=== PATIENT | female | born 1935 | race Hispanic/Latino ===

== ENCOUNTER 2020-05-28 12:09 | Outpatient (CLI) | payer MEDICARE ==
--- NOTE | 2020-05-28 15:24 | Cat Scan Report ---
CT abdomen pelvis wo/w con INDICATION / CLINICAL INFORMATION: MAIN. TECHNIQUE: Volumetric CT data acquisition of the abdomen and pelvis was performed prior to and follow ing administration of IV contrast. All CT scans at this location are performed using CT dose reducti on for ALARA by means of automated exposure control. COMPARISON: None available FINDINGS: LOWER CHEST: There is cardiac enlargement without pericardial effusion. Small bilateral pleural effus ions, more pronounced in the right. There is interlobular septal thickening, favoring interstitial ed chan. LIVER: Unremarkable GALLBLADDER/BILIARY TREE: Gallbladder is surgically absent. There is intrahepatic and extrahepatic bi liary dilatation, with common bile duct measuring up to 1.8 cm. No discrete obstructing stone or mass identified. PANCREAS: There is mild pancreatic duct dilatation. Pancreas is otherwise unremarkable. SPLEEN: Scattered calcified granulomata throughout the spleen with multiple cystic structures, which may reflect cyst or pseudocyst. ADRENALS: Unremarkable KIDNEYS: Kidneys enhance symmetrically. Tiny exophytic mid pole left renal cyst noted. No suspicious renal lesion. No hydronephrosis URINARY BLADDER: Bladder is unremarkable. REPRODUCTIVE ORGANS: Uterus is absent. No significant adnexal abnormality. STOMACH / SMALL BOWEL: Stomach and small bowel are normal in caliber. No evidence of bowel inflammati on. COLON: Colonic diverticulosis without evidence of diverticulitis. There is moderate colonic stool bur den. No colonic wall thickening or pericolonic inflammatory stranding. The appendix is not visualized , likely reflecting appendectomy. LYMPH NODES: No significant adenopathy. VASCULATURE: Severe atherosclerotic calcification without acute abnormality. OTHER: Trace perihepatic and pelvic free fluid. No intraperitoneal free air. No organized fluid colle ction. There is mild skin thickening of the right lower abdominal wall. 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 IMPRESSION: 1. Mild skin thickening of the right lower abdominal wall with adjacent inflammatory stranding, may r eflect cellulitis in the appropriate clinical setting. 2. Diffuse intrahepatic and extrahepatic biliary dilatation. This may reflect reservoir phenomenon r elated to cholecystectomy. Recommend correlation with laboratory values to exclude distal biliary obs truction. 3. Moderate colonic stool burden without evidence of colitis. 4. Cardiac enlargement with mild interstitial edema and small bilateral pleural effusions, more prono unced in the right. 5. Other chronic, incidental findings, as above. Signer Name: Jeff Cohen MD Signed: 05/28/2020 3:19 PM Workstation Name: [id number]
== END 2020-05-28 12:10 | disposition home or self-care (01) ==
LOC: CT 12:09
PROVIDERS: ATTEND Internal Medicine
DX: J90 Pleural effusion, not elsewhere classified (principal); I51.0 Cardiac septal defect, acquired; K57.30 Diverticulosis of large intestine without perforation or abscess without bleeding; N28.1 Cyst of kidney, acquired; Z90.49 Acquired absence of other specified parts of digestive tract
CPT/HCPCS: 36415; 74178; 82565; 84520; Q9967

== ENCOUNTER 2021-03-17 14:58 | Inpatient (IN) | payer MEDICARE ==
--- NOTE | 2021-03-17 17:07 | Emergency Department Report ---
ED Fall [facility] - General Chief Complaint: Fall Stated Complaint: FALL Source: patient Mode of arrival: Wheelchair - History of Present Illness MD Complaint: fall - Related Data Allergies Allergy/AdvReac Type Severity Reaction Status Date / Time No Known Allergies Allergy Verified 03/17/21 15:01 ED Review of Systems ROS: Stated complaint: FALL Other details as noted in HPI ED Physical Exam - General Limitations: No Limitations General appearance: alert, in no apparent distress - Head Head exam: Present: atraumatic, normocephalic - Eye Eye exam: Present: normal appearance, PERRL, EOMI Pupils: Present: normal accommodation - ENT ENT exam: Present: normal exam, normal orophraynx, mucous membranes moist, TM's normal bilaterally - Neck Neck exam: Present: normal inspection, full ROM - Respiratory Respiratory exam: Present: normal lung sounds bilaterally, rhonchi, decreased breath sounds (Decreased breath sounds to the bases). Absent: respiratory distress, wheezes, rales, accessory muscle use - Cardiovascular Cardiovascular Exam: Present: regular rate, normal rhythm. Absent: systolic murmur, diastolic murmur, rubs, gallop - GI/Abdominal GI/Abdominal exam: Present: soft, normal bowel sounds, organomegaly, other (Ascites and caput medusa is no is noted. Hepatomegaly also noted). Absent: guarding, rebound - Extremities Exam Extremities exam: Present: normal inspection, tenderness (Tenderness to the right hip with palpation over the trochanter region. No internal rotation or shortening is noted.), joint swelling (Swelling to the left elbow with a large skin tear to the lateral aspect of the wound) - Back Exam Back exam: Present: normal inspection. Absent: CVA tenderness (R), CVA tenderness (L) - Neurological Exam Neurological exam: Present: alert, oriented X3, CN II-XII intact, normal gait - Psychiatric Psychiatric exam: Present: normal affect, normal mood. Absent: anxious, flat affect, manic - Skin Skin exam: Present: warm, dry, intact, normal color. Absent: rash, diaphoretic, erythema, pallor, abrasion ED Course Vital Signs 03/17/21 03/17/21 15:01 15:23 Temperature 97.8 F Pulse Rate 94 H Respiratory 18 16 Rate Blood Pressure 136/61 [Left] O2 Sat by Pulse 97 97 Oximetry ED Medical Decision Making - Lab Data Result diagrams: 03/17/21 18:10 03/17/21 18:10 - Radiology Data Radiology results: report reviewed [address] [address] XRay Report Signed Patient: MAREK SALDANA MR#: [id number] [birth year] : 1935 Acct:[id number] Age/Sex: 85 / F ADM Date: 03/17/21 Loc: ED Attending Dr: Ordering Physician: NATHALIA HOLT Date of Service: 03/17/21 Procedure(s): XR hip 2-3V RT Accession Number(s): [id number] cc: NATHALIA HOLT Fluoro Time In Minutes: RIGHT HIP 2 VIEW(S) INDICATION / CLINICAL INFORMATION: fall pain with hematoma COMPARISON: CT dated 05/28/20 FINDINGS: BONES / JOINT(S): No acute fracture or subluxation. Moderate right hip degenerative arthrosis. SOFT TISSUES: Soft tissue swelling over the lateral aspect of the right hip. ADDITIONAL FINDINGS: None. Signer Name: Nenita Torres MD Signed: 03/17/2021 6:22 PM Workstation Name: [id number] Transcribed By: DT Dictated By: Reymundo Torres MD Electronically Authenticated By: Reymundo Torres MD Signed Date/Time: 03/17/211821 DD/ 18 TD/TT: [address] [address] XRay Report Signed Patient: MAREK SALDANA MR#: [id number] [birth year] : 1935 Acct:[id number] Age/Sex: 85 / F ADM Date: 03/17/21 Loc: ED Attending Dr: Ordering Physician: NATHALIA HOLT Date of Service: 03/17/21 Procedure(s): XR elbow 3+V LT Accession Number(s): [id number] cc: NATHALIA HOLT Fluoro Time In Minutes: LEFT ELBOW 4 VIEW(S) INDICATION / CLINICAL INFORMATION: fall pain hematoma COMPARISON: None available. FINDINGS: BONES / JOINT(S): No acute fracture or subluxation. No significant arthritis. SOFT TISSUES: Mild soft tissue swelling on the posterior and lateral aspect of the elbow. ADDITIONAL FINDINGS: None. Signer Name: Nenita Torres MD Signed: 03/17/2021 6:23 PM Workstation Name: [id number] Transcribed By: KENNETH Dictated By: Reymundo Torres MD Electronically Authenticated By: Reymundo Torres MD Signed Date/Time: 03/17/211822 DD/ 21 TD/TT: [address] [address] XRay Report Signed Patient: MAREK SALDANA MR#: [id number] [birth year] : 1935 Acct:[id number] Age/Sex: 85 / F ADM Date: 03/17/21 Loc: ED Attending Dr: Ordering Physician: NATHALIA HOLT Date of Service: 03/17/21 Procedure(s): XR chest routine 2V Accession Number(s): [id number] cc: NATHALIA HOLT Fluoro Time In Minutes: CHEST 2 VIEWS INDICATION / CLINICAL INFORMATION: sob. COMPARISON: 05/04/11 FINDINGS: SUPPORT DEVICES: None. HEART / MEDIASTINUM: Heart is moderately enlarged with pulmonary venous hypertension. LUNGS / PLEURA: Mild to moderate interstitial pulmonary edema No pneumothorax. ADDITIONAL FINDINGS: No significant additional findings. IMPRESSION: 1. Cardiomegaly with pulmonary edema. Signer Name: Nenita Torres MD Signed: 03/17/2021 6:23 PM Workstation Name: [id number] Transcribed By: DT Dictated By: Reymundo Torres MD Electronically Authenticated By: Reymundo Torres MD Signed Date/Time: 03/17/211822 DD/ 22 TD/TT: Critical care attestation.: If time is entered above; I have spent that time in minutes in the direct care of this critically ill patient, excluding procedure time. ED Disposition Condition: Stable Referrals: PRIMARY CARE, [Referring] - 3-5 Days
--- NOTE | 2021-03-17 18:26 | XRay Report ---
RIGHT HIP 2 VIEW(S) INDICATION / CLINICAL INFORMATION: fall pain with hematoma COMPARISON: CT dated 05/28/20 FINDINGS: BONES / JOINT(S): No acute fracture or subluxation. Moderate right hip degenerative arthrosis. SOFT TISSUES: Soft tissue swelling over the lateral aspect of the right hip. ADDITIONAL FINDINGS: None. Signer Name: Nenita Torres MD Signed: 03/17/2021 6:22 PM Workstation Name: [id number]
--- NOTE | 2021-03-17 18:27 | XRay Report ---
LEFT ELBOW 4 VIEW(S) INDICATION / CLINICAL INFORMATION: fall pain hematoma COMPARISON: None available. FINDINGS: BONES / JOINT(S): No acute fracture or subluxation. No significant arthritis. SOFT TISSUES: Mild soft tissue swelling on the posterior and lateral aspect of the elbow. ADDITIONAL FINDINGS: None. Signer Name: Nenita Torres MD Signed: 03/17/2021 6:23 PM Workstation Name: [id number]
--- NOTE | 2021-03-17 18:28 | XRay Report ---
CHEST 2 VIEWS INDICATION / CLINICAL INFORMATION: sob. COMPARISON: 05/04/11 FINDINGS: SUPPORT DEVICES: None. HEART / MEDIASTINUM: Heart is moderately enlarged with pulmonary venous hypertension. LUNGS / PLEURA: Mild to moderate interstitial pulmonary edema No pneumothorax. ADDITIONAL FINDINGS: No significant additional findings. IMPRESSION: 1. Cardiomegaly with pulmonary edema. Signer Name: Nenita Torres MD Signed: 03/17/2021 6:23 PM Workstation Name: [id number]
[2021-03-17 18:38] LABS: Basophils # (Auto) 0.1 K/mm3 (0.0-0.1); Basophils % (Auto) 1.7 % (0.0-1.8); Eosinophils % (Auto) 0.6 % (0.0-4.3); Hematocrit 29.9 % (30.3-42.9); Hemoglobin 9.3 gm/dl (10.1-14.3); Lymphocytes # (Auto) 0.8 K/mm3 (1.2-5.4); Lymphocytes % (Auto) 10.7 % (13.4-35.0); Mean Corpuscular HGB Conc 31 % (30-34); Mean Corpuscular Volume 95 fl (79-97); Monocytes # (Auto) 0.9 K/mm3 (0.0-0.8); Monocytes % (Auto) 13.1 % (0.0-7.3); Platelet Count 253 K/mm3 (140-440); Red Blood Count 3.16 M/mm3 (3.65-5.03); Red Cell Distribution Width 19.2 % (13.2-15.2)
[2021-03-17 18:53] LABS: Albumin 3.9 g/dL (3.9-5); Calcium 8.2 mg/dL (8.4-10.2)
[2021-03-17] MEDS ORDERED: FUROSEMIDE 40 MG/4 ML INJ IV ONE (21:04)
[2021-03-17] MEDS ORDERED: ACETAMINOPHEN 325 MG TAB PO PRN (22:00)
[2021-03-17] MEDS ORDERED: ONDANSETRON 4 MG/2 ML INJ IV PRN (22:00)
[2021-03-17] MEDS ORDERED: ALBUTEROL 2.5 MG/3 ML NEBU IH PRN (22:00)
[2021-03-17] MEDS ORDERED: NITROGLYCERIN 0.4 MG TAB SUBL SL PRN (22:00)
[2021-03-17] MEDS ORDERED: oxyCODONE /ACETAMINOPHEN 5-325MG TAB PO PRN (22:00)
[2021-03-17] MEDS ORDERED: HYDROmorphone 1 MG/1 ML INJ IV PRN (22:00)
--- NOTE | 2021-03-17 22:09 | History and Physical Report ---
History of Present Illness Date of examination: 03/17/21 Date of admission: 03/17/21 Chief complaint: Fall Shortness of breath History of present illness: 85 years old female with history of liver disease was brought to the emergency room because patient is falling for the last couple of days. Patient has history of multiple fall for the last couple of days. Patient also complained of swelling of the body and shortness of breath for the last couple of days Subsequently patient was brought to the emergency room in the emergency room patient is found to have acute [place] [address], also ammonia is 77.0 so we are going to admit the patient. We consulted case management for home health and possible hospice consult as per the family member Past History Past Medical History: heart failure, liver disease Medications and Allergies Allergies Allergy/AdvReac Type Severity Reaction Status Date / Time No Known Allergies Allergy Verified 03/17/21 15:01 Active Meds: Active Medications Acetaminophen (Acetaminophen 325 Mg Tab) 650 mg PO Q4H PRN PRN Reason: Pain MILD(1-3)/Fever >100.5/SALG[place]O Albuterol (Albuterol 2.5 Mg/3 Ml Nebu) 2.5 mg IH Q4HRT PRN PRN Reason: Shortness Of Breath Albuterol/Ipratropium (Ipratropium/Albuterol Sulfate 3 Ml Ampul.Neb) 1 ampul IH Q6HRT ARCHIE Famotidine (Famotidine 20 Mg Tab) 20 mg PO BID ARCHIE Furosemide (Furosemide 40 Mg/4 Ml Inj) 40 mg IV BID@0600,1800 ARCHIE Hydromorphone HCl (Hydromorphone 1 Mg/1 Ml Inj) 0.5 mg IV Q3H PRN PRN Reason: Pain , Severe (7-10) Nitroglycerin (Nitroglycerin 0.4 Mg Tab Subl) 0.4 mg SL .Q5MIN PRN PRN Reason: Chest Pain Ondansetron HCl (Ondansetron 4 Mg/2 Ml Inj) 4 mg IV Q8H PRN PRN Reason: Nausea And Vomiting Oxycodone/Acetaminophen (Oxycodone /Acetaminophen 5-325mg Tab) 1 tab PO Q6H PRN PRN Reason: Pain, Moderate (4-6) Sodium Chloride (Sodium Chloride 0.9% 10 Ml Flush Syringe) 10 ml IV BID ARCHIE Sodium Chloride (Sodium Chloride 0.9% 10 Ml Flush Syringe) 10 ml IV PRN PRN PRN Reason: LINE FLUSH Review of Systems All systems: negative Constitutional: weakness, other Cardiovascular: shortness of breath, dyspnea on exertion Respiratory: shortness of breath, dyspnea on exertion Musculoskeletal: other (Some wound and bruise in the extremities) Exam - Constitutional Vitals: Temp Pulse Resp BP Pulse Ox 97.8 F 94 H 16 136/61 97 03/17/21 15:01 03/17/21 15:01 03/17/21 15:23 03/17/21 15:01 03/17/21 15:23 General appearance: Present: no acute distress, well-nourished - EENT Eyes: Present: PERRL ENT: hearing intact, clear oral mucosa - Neck Neck: Present: supple, normal ROM - Respiratory Respiratory effort: normal Respiratory: bilateral: rales - Cardiovascular Heart Sounds: Present: S1 & S2. Absent: rub, click - Extremities Extremities: pulses symmetrical, No edema Peripheral Pulses: within normal limits - Abdominal General gastrointestinal: Present: soft, non-tender, non-distended, normal bowel sounds Female genitourinary: Present: normal - Integumentary Integumentary: Present: clear, warm, dry, erythema - Musculoskeletal Musculoskeletal: generalized weakness - Psychiatric Psychiatric: appropriate mood/affect, intact judgment & insight - Neurologic Neurologic: CNII-XII intact, moves all extremities HEART Score - HEART Score Troponin: Troponin T 0.022 ng/mL (0.00-0.029) 03/17/21 18:10 Results - Labs CBC & Chem 7: 03/17/21 18:10 03/17/21 18:10 Labs: Laboratory Last Values WBC 7.1 K/mm3 (4.5-11.0) 03/17/21 18:10 RBC 3.16 M/mm3 (3.65-5.03) L 03/17/21 18:10 Hgb 9.3 gm/dl (10.1-14.3) L 03/17/21 18:10 Hct 29.9 % (30.3-42.9) L 03/17/21 18:10 MCV 95 fl (79-97) 03/17/21 18:10 MCH 30 pg (28-32) 03/17/21 18:10 MCHC 31 % (30-34) 03/17/21 18:10 RDW 19.2 % (13.2-15.2) H 03/17/21 18:10 Plt Count 253 K/mm3 (140-440) 03/17/21 18:10 Lymph % (Auto) 10.7 % (13.4-35.0) L 03/17/21 18:10 [place] % (Auto) 13.1 % (0.0-7.3) H 03/17/21 18:10 Eos % (Auto) 0.6 % (0.0-4.3) 03/17/21 18:10 Baso % (Auto) 1.7 % (0.0-1.8) 03/17/21 18:10 Lymph # (Auto) 0.8 K/mm3 (1.2-5.4) L 03/17/21 18:10 [place] # (Auto) 0.9 K/mm3 (0.0-0.8) H 03/17/21 18:10 Eos # (Auto) 0.0 K/mm3 (0.0-0.4) 03/17/21 18:10 Baso # (Auto) 0.1 K/mm3 (0.0-0.1) 03/17/21 18:10 Seg Neutrophils % 73.9 % (40.0-70.0) H 03/17/21 18:10 Seg Neutrophils # 5.2 K/mm3 (1.8-7.7) 03/17/21 18:10 Sodium 134 mmol/L (137-145) L 03/17/21 18:10 Potassium 4.1 mmol/L (3.6-5.0) 03/17/21 18:10 Chloride 93.3 mmol/L (98-107) L 03/17/21 18:10 Carbon Dioxide 25 mmol/L (22-30) 03/17/21 18:10 Anion Gap 20 mmol/L 03/17/21 18:10 BUN 39 mg/dL (7-17) H 03/17/21 18:10 Creatinine 1.3 mg/dL (0.6-1.2) H 03/17/21 18:10 Estimated GFR 39 ml/min 03/17/21 18:10 BUN/Creatinine Ratio 30 % 03/17/21 18:10 Glucose 81 mg/dL (65-100) 03/17/21 18:10 Calcium 8.2 mg/dL (8.4-10.2) L 03/17/21 18:10 Total Bilirubin 1.60 mg/dL (0.1-1.2) H 03/17/21 18:10 AST 15 units/L (5-40) 03/17/21 18:10 ALT 8 units/L (7-56) 03/17/21 18:10 Alkaline Phosphatase 97 units/L (35-129) 03/17/21 18:10 Ammonia 77.0 umol/L (25-60) H 03/17/21 18:10 Troponin T 0.022 ng/mL (0.00-0.029) 03/17/21 18:10 NT-Pro-B Natriuret Pep 35787 pg/mL (0-900) H 03/17/21 18:10 Total Protein 8.2 g/dL (6.3-8.2) 03/17/21 18:10 Albumin 3.9 g/dL (3.9-5) 03/17/21 18:10 Albumin/Globulin Ratio 0.9 % 03/17/21 18:10 - Imaging and Cardiology Chest x-ray: report reviewed CT scan - abdomen: report reviewed Assessment and Plan VTE prophylaxis?: Mechanical Plan of care discussed with patient/family: Yes - Patient Problems (1) CHF exacerbation Current Visit: Yes Status: Acute Plan to address problem: Admit the patient to the medical floor. Cardiac diet. Lasix 40 mg IV every 12 hours. Oxygen via nasal catheter per minute DuoNeb by nebulizer every 4 hours. Fluid restriction maintain input output chart. Daily weight. Echocardiogram. Will consult cardiology if needed (2) Fall Current Visit: Yes Status: Acute Plan to address problem: Patient is on fall precaution. We consulted physical therapy for evaluation. We will continue the home medication (3) Acute metabolic encephalopathy Current Visit: Yes Status: Acute Plan to address problem: Most likely from CHF and liver disease. We put the patient on lactulose 30 g p.o. daily. We will recheck the CMP in the morning. We continue home medication. Will consult GI if needed. (4) Liver disease Current Visit: Yes Status: Acute Plan to address problem: Cardiac diet. Pepcid 20 mg p.o. twice daily. Zofran 4 million IV every 6 hours as needed. Continue the home medication. Recheck CMP in the morning. Consult GI if needed (5) Cellulitis of abdominal wall Current Visit: Yes Status: Acute Plan to address problem: Rocephin 2 g IV daily. Will consult wound care for evaluation. (6) DVT prophylaxis Current Visit: Yes Status: Acute Plan to address problem: SCD for DVT prophylaxis. Pepcid 20 mg p.o. twice daily for GI prophylaxis. Patient is a full code
[2021-03-17] MEDS ORDERED: LACTULOSE 20 GM/30 ML ORAL LIQD PO PRN (22:16)
[2021-03-18] MEDS: FAMOTIDINE 20 MG TAB PO SCH ×2 (00:11→11:40)
[2021-03-18 05:51] LABS: Basophils # (Auto) 0.1 K/mm3 (0.0-0.1); Basophils % (Auto) 2.2 % (0.0-1.8); Eosinophils # (Auto) 0.1 K/mm3 (0.0-0.4); Eosinophils % (Auto) 0.9 % (0.0-4.3); Hematocrit 28.5 % (30.3-42.9); Lymphocytes # (Auto) 0.8 K/mm3 (1.2-5.4); Lymphocytes % (Auto) 14.7 % (13.4-35.0); Mean Corpuscular HGB Conc 32 % (30-34); Mean Corpuscular Volume 93 fl (79-97); Monocytes # (Auto) 0.7 K/mm3 (0.0-0.8); Monocytes % (Auto) 13.2 % (0.0-7.3); Platelet Count 246 K/mm3 (140-440); Red Blood Count 3.05 M/mm3 (3.65-5.03); Red Cell Distribution Width 18.7 % (13.2-15.2)
[2021-03-18] MEDS: FUROSEMIDE 40 MG/4 ML INJ IV SCH ×2 (06:02→17:53)
[2021-03-18 06:08] LABS: Calcium 8.3 mg/dL (8.4-10.2)
[2021-03-18] MEDS: IPRATROPIUM/ALBUTEROL SULFATE 3 ML AMPUL.NEB IH SCH ×3 (08:25→13:05)
--- NOTE | 2021-03-18 10:44 | Electrocardiograph Report ---
[facility] Test Date: 2021-03-17 Test Time: 23:36:50 Pat Name: MAREK SALDANA Department: Room: [facility] Gender: F [employer]: BRITT : 1935 Requested By: DELIA TOM Order Number: [id number] Reading MD: Tobin Santana Measurements Intervals Powers Rate: 66 P: -79 DC: 216 QRS: -83 QRSD: 100 T: -32 QT: 447 QTc: 469 Interpretive Statements Sinus or ectopic atrial rhythm Multiform ventricular premature complexes Borderline prolonged DC interval Inferior infarct, age indeterminate No previous ECG available for comparison Electronically Signed On 03-18-2021 10:44:10 EST by Tobin Santana
--- NOTE | 2021-03-18 11:22 | Progress Note ---
Assessment and Plan Assessment and plan: 85 years old female with history of liver disease was brought to the emergency room because patient is falling for the last couple of days. Patient has history of multiple fall for the last couple of days. Patient also complained of swelling of the body and shortness of breath for the last couple of days Subsequently patient was brought to the emergency room in the emergency room patient is found to [place]. [place] [address], also ammonia is 77.0 so we are going to admit the patient. We consulted case management for home health and possible hospice consult as per the family member (1) acute diastolic CHF exacerbation Current Visit: Yes Status: Acute Plan to address problem: Admit the patient to the medical floor. Cardiac diet. Lasix 40 mg IV every 12 hours. Oxygen via nasal catheter per minute DuoNeb by nebulizer every 4 hours. Fluid restriction maintain input output chart. Daily weight. Echocardiogram. Will consult cardiology if needed (2) Fall Current Visit: Yes Status: Acute Plan to address problem: Patient is on fall precaution. We consulted physical therapy for evaluation. We will continue the home medication (3) Acute metabolic encephalopathy Current Visit: Yes Status: Acute Plan to address problem: Most likely from CHF and liver disease. We put the patient on lactulose 30 g p.o. daily. We will recheck the CMP in the morning. We continue home medication. Will consult GI if needed. (4) decompensated liver disease Current Visit: Yes Status: Acute Plan to address problem: Cardiac diet. Pepcid 20 mg p.o. twice daily. Zofran 4 million IV every 6 hours as needed. Continue the home medication. Recheck CMP in the morning. Consult GI if needed (5) Cellulitis of abdominal wall Current Visit: Yes Status: Acute Plan to address problem: Rocephin 2 g IV daily. Will consult wound care for evaluation. (6) hyperammonemia Anemia of chronic disease Acute kidney injury with vasomotor nephropathy Hyperbilirubinemia Mild pulmonary hypertension DVT prophylaxis Current Visit: Yes Status: Acute Plan to address problem: SCD for DVT prophylaxis. Pepcid 20 mg p.o. twice daily for GI prophylaxis. Patient is a full code 03/18: Patient seen and examined I did discuss with her granddaughter at bedside who tells me that the patient is a DNR and does not want any exaggerated prolonging life measures she also brought a advanced directive. I did also have extensive discussion with the patient and the granddaughter who are requesting palliative care. Patient will continue current treatment. Advised case management and will also have PT OT evaluation Case management is working on palliative care and hospice initiation for the patient. Advanced directive discussed in detail advance care planning for 30 minutes anticipate discharge in a.m. once social issues addressed. For now continue antibiotics which urinary cultures urinalysis History Interval history: Patient seen and examined no acute distress although confused about why she is in the hospital granddaughter at bedside provided much contest to her unfortunately failing health Hospitalist Physical - Physical exam Narrative exam: VITAL SIGNS: Reviewed. GENERAL: The patient appears frail. Intermittent confusion vital signs as documented. HEAD: No signs of head trauma. EYES: Pupils are equal. Right eye proptosis extraocular motions intact. EARS: Hearing grossly intact. MOUTH: Oropharynx is normal. NECK: No adenopathy, no JVD. CHEST: Chest with fine crackles at the bases breath sounds bilaterally. No wheezes. CARDIAC: Regular rate and rhythm. S1 and S2, without murmurs, gallops, or rubs. VASCULAR: Some dependent edema 1 edema. Peripheral pulses normal and equal in all extremities. ABDOMEN: Soft, non tender and non distended. No rebound or guarding, and no masses palpated. Bowel Sounds normal. MUSCULOSKELETAL: Good range of motion of all major joints. Extremities without clubbing, cyanosis or edema. NEUROLOGIC EXAM: Alert and oriented x [address] No focal sensory or strength deficits. Speech normal. Follows commands. PSYCHIATRIC: Mood normal. Poor insight to her medical condition SKIN: Multiple ecchymotic skin abrasion with bullae formation otherwise please see detail exam as documented in skin assessment - Constitutional Vitals: Temp Pulse Resp BP Pulse Ox 98.1 F 65 18 130/63 96 03/18/21 05:03 03/18/21 05:03 03/18/21 05:03 03/18/21 05:03 03/18/21 05:03 General appearance: Present: no acute distress, well-nourished HEART Score - HEART Score Troponin: Troponin T 0.022 ng/mL (0.00-0.029) 03/17/21 18:10 Results - Labs CBC & Chem 7: 03/18/21 04:55 03/18/21 04:55 Labs: Laboratory Last Values WBC 5.6 K/mm3 (4.5-11.0) 03/18/21 04:55 RBC 3.05 M/mm3 (3.65-5.03) L 03/18/21 04:55 Hgb 9.0 gm/dl (10.1-14.3) L 03/18/21 04:55 Hct 28.5 % (30.3-42.9) L 03/18/21 04:55 MCV 93 fl (79-97) 03/18/21 04:55 MCH 29 pg (28-32) 03/18/21 04:55 MCHC 32 % (30-34) 03/18/21 04:55 RDW 18.7 % (13.2-15.2) H 03/18/21 04:55 Plt Count 246 K/mm3 (140-440) 03/18/21 04:55 Lymph % (Auto) 14.7 % (13.4-35.0) 03/18/21 04:55 Saunders % (Auto) 13.2 % (0.0-7.3) H 03/18/21 04:55 Eos % (Auto) 0.9 % (0.0-4.3) 03/18/21 04:55 Baso % (Auto) 2.2 % (0.0-1.8) H 03/18/21 04:55 Lymph # (Auto) 0.8 K/mm3 (1.2-5.4) L 03/18/21 04:55 Saunders # (Auto) 0.7 K/mm3 (0.0-0.8) 03/18/21 04:55 Eos # (Auto) 0.1 K/mm3 (0.0-0.4) 03/18/21 04:55 Baso # (Auto) 0.1 K/mm3 (0.0-0.1) 03/18/21 04:55 Seg Neutrophils % 69.0 % (40.0-70.0) 03/18/21 04:55 Seg Neutrophils # 3.9 K/mm3 (1.8-7.7) 03/18/21 04:55 Sodium 139 mmol/L (137-145) 03/18/21 04:55 Potassium 4.1 mmol/L (3.6-5.0) 03/18/21 04:55 Chloride 98.3 mmol/L (98-107) 03/18/21 04:55 Carbon Dioxide 28 mmol/L (22-30) 03/18/21 04:55 Anion Gap 17 mmol/L 03/18/21 04:55 BUN 41 mg/dL (7-17) H 03/18/21 04:55 Creatinine 1.3 mg/dL (0.6-1.2) H 03/18/21 04:55 Estimated GFR 39 ml/min 03/18/21 04:55 BUN/Creatinine Ratio 32 % 03/18/21 04:55 Glucose 75 mg/dL (65-100) 03/18/21 04:55 Calcium 8.3 mg/dL (8.4-10.2) L 03/18/21 04:55 Total Bilirubin 1.60 mg/dL (0.1-1.2) H 03/17/21 18:10 AST 15 units/L (5-40) 03/17/21 18:10 ALT 8 units/L (7-56) 03/17/21 18:10 Alkaline Phosphatase 97 units/L (35-129) 03/17/21 18:10 Ammonia 77.0 umol/L (25-60) H 03/17/21 18:10 Troponin T 0.022 ng/mL (0.00-0.029) 03/17/21 18:10 NT-Pro-B Natriuret Pep 27178 pg/mL (0-900) H 03/17/21 18:10 Total Protein 8.2 g/dL (6.3-8.2) 03/17/21 18:10 Albumin 3.9 g/dL (3.9-5) 03/17/21 18:10 Albumin/Globulin Ratio 0.9 % 03/17/21 18:10 Serna/IV: Voiding Method External Female Catheter Active Medications - Current Medications Current Medications: Generic Name Dose Route Start Last Admin Trade Name Freq PRN Reason Stop Dose Admin Acetaminophen 650 mg 03/17/21 22:00 Acetaminophen 325 Mg Tab PO Q4H PRN Pain MILD(1-3)/Fever >100.5/SAL[place]O Albuterol 2.5 mg 03/17/21 22:00 Albuterol 2.5 Mg/3 Ml Nebu IH Q4HRT PRN Shortness Of Breath Albuterol/Ipratropium 1 ampul 03/18/21 02:00 03/18/21 08:25 Ipratropium/Albuterol Sulfate 3 Ml Ampul.Neb IH 1 ampul Q6HRT ARCHIE Administration Famotidine 20 mg 03/17/21 22:00 03/18/21 00:11 Famotidine 20 Mg Tab PO 20 mg BID ARCHIE Administration Furosemide 40 mg 03/18/21 06:00 03/18/21 06:02 Furosemide 40 Mg/4 Ml Inj IV 40 mg BID@0600,1800 ARCHIE Administration Hydromorphone HCl 0.5 mg 03/17/21 22:00 Hydromorphone 1 Mg/1 Ml Inj IV Q3H PRN Pain , Severe (7-10) Lactulose 30 gm 03/17/21 22:16 Lactulose 20 Gm/30 Ml Oral Liqd PO QDAY PRN Constipation Nitroglycerin 0.4 mg 03/17/21 22:00 Nitroglycerin 0.4 Mg Tab Subl SL .Q5MIN PRN Chest Pain Ondansetron HCl 4 mg 03/17/21 22:00 Ondansetron 4 Mg/2 Ml Inj IV Q8H PRN Nausea And Vomiting Oxycodone/Acetaminophen 1 tab 03/17/21 22:00 Oxycodone /Acetaminophen 5-325mg Tab PO Q6H PRN Pain, Moderate (4-6) Sodium Chloride 10 ml 03/17/21 22:00 03/18/21 00:08 Sodium Chloride 0.9% 10 Ml Flush Syringe IV 10 ml BID ARCHIE Administration Sodium Chloride 10 ml 03/17/21 22:00 Sodium Chloride 0.9% 10 Ml Flush Syringe IV PRN PRN LINE FLUSH
[2021-03-18 18:17] VITALS: BP 134/53
== END 2021-03-18 18:29 | disposition hospice, home (50) | DRG 291 ==
LOC: ED 14:58 → 3A 22:00
PROVIDERS: ADMIT Hospitalist; ATTEND Internal Medicine
DX: I50.31 Acute diastolic (congestive) heart failure (principal); G93.41 Metabolic encephalopathy; N17.0 Acute kidney failure with tubular necrosis; L03.311 Cellulitis of abdominal wall; E72.20 Disorder of urea cycle metabolism, unspecified; W19.XXXA Unspecified fall, initial encounter; D64.9 Anemia, unspecified; I27.20 Pulmonary hypertension, unspecified; Y93.89 Activity, other specified; Y92.89 Other specified places as the place of occurrence of the external cause
CPT/HCPCS: 36415; 71046; 80048; 80053; 82140; 83880; 84484; 85025; 93005; 93306; 94640; 94760; G0378; J1940